=== PATIENT | female | born 1955 | race Caucasian/White ===

== ENCOUNTER → 2016-06-14 | Day surgery (SDC) | payer OTHER ==
[~2016-06-14] VITALS: Ht 170.2 cm; Wt 99.0 kg
[~2016-06-14] MED LIST: ACETAMINOPHEN 325 MG TAB PO PRN; ALBUAER2 INH; ASPCH81X PO; ASPI-390 PO; ATROPINE SULFATE 0.1 MG/ML 5ML SYR IV PRN; BENZ1CAP90 PO; BRVIN; BUDE0.5S INH; BUPR100T5 PO; BUPR150T5 PO; CALC-20 PO; CDN15 PO; CLON1TAB3 PO; CYM/30 PO; DULO60CA44 PO; FENTANYL CITRATE INJ 50 MCG/1 ML 2 ML VIAL ONE; FLUC100T4 PO; FURO-85 PO; GFNSR600 PO; HEPARIN SOD (PORCINE) 1000 UNIT/ML 10 ML VIAL ONE; HYDR1SUS2 PO; HYDR50TA3 PO; LEVAAER2 INH; LEVO1TAB35 PO; MIDAZOLAM HCL 1 MG/ML 2ML VIAL ONE; MORP20SO PO; MULT-729 PO; NAPR1CAP12 PO; NITROGLYCERIN/D5W 100MCG/ML 20ML SYR ONE; NYSS5 PO; NiCARDipine HCL INJ 2.5 MG/ML 10 ML AMP ONE; PANT40TA PO; PRED10TA PO; PRED20TA PO; RANI300T2 PO; ROSU5TAB PO; SNG10 PO; SODIUM CHLORIDE 0.9% 1000ML 1,000 ML IV SCH; SODIUM CHLORIDE 0.9% 1000ML 250 ML IV PRN; TAPE50TA PO; THEO1TAB PO; [UNRECOGNIZED DRUG - CODE] IV
[2016-06-14 08:55] VITALS: BP 136/57; PULSE 103; TEMP 36.7; O2SAT 97; Ht 170.2 cm; Wt 99.0 kg
--- NOTE | 2016-06-14 09:28 | History & Physical Bridge Note ---
H&P Re-Evaluation Bridge Note: I have examined the patient, reviewed the History & Physical and in the interval since the performance of the History & Physical I have noted the following changes of clinical significance: No changes noted
--- NOTE | 2016-06-14 09:31 | Procedure Note ---
Pre-Mod Sedation Assessment General Date of Moderate Sedation: Jun 14, 2016. Vital Signs: Vital Signs Past 12 Hours Date Time Temp Pulse Resp B/P Pulse Ox O2 Delivery O2 Flow Rate FiO2 06/14/16 08:55 36.7 103 16 136/57 97 Room Air Review Cardiovascular: regular rate, rhythm, no edema, no gallop, no murmur Abdomen: normal bowel sounds, non tender Lungs: + decreased breath sounds Airway Class: II Pre-Sedation Airway Assessment Oral Cavity: WNL Able to Visualize Vocal Cords: Yes Short Thick Neck: Yes Hx of Sleep Apnea: No Smoking Status: Never Smoker Mallampati Classification: Class II ASA Classification: Class II Procedure Planning Contraindications-for Mod Sed: None Notes The planned sedation has been discussed with the patient and consent obtained. I have identified the patient, determined the appropriateness of sedation and have assessed the patient immediately prior to the procedure. All medicine(s) and interventions are by my order.
--- NOTE | 2016-06-14 10:31 | [facility] Post Operative Brief Note ---
Preliminary Procedure Note Procedure Date Jun 14, 2016. Pre-Procedure Diagnosis Positive Stress Test AUC Score 8 Post-Procedure Diagnosis Normal Coronary Arteries Procedure(s) Performed Coronary Angiography, Left Heart Cath, LV Angiography Clod Puller Dr. Roberto Pat Clinical Appeals Specialist(s) Krissy Augustin Estimated Blood Loss <15cc Medication(s) Fentanyl (12.5 mcg IV), Heparin (5000u IV), Nicardipine (300mcg intraarterial after sheath insertion), Versed (1 mg IV), Lidocaine 1% (local infiltration) Preliminary Findings Right dominant coronary anatomy LM -- long normal LAD -- short Type II with thin apical segment but large paralleling diagonal with minimal luminal irregularities Ramus -- small without disease LCX -- large but nondominant with large OM two small PL branches. No disease RCA -- large dominant vessel with minimal luminal irregularities only LV -- Normal function EF 60-65%, no MR normal AO size LVEDP 12 Recommendations Medical therapy and/or Counseling Specimens None Fluids (cc crystalloids) 60 Anesthesia Versed 1mg IV, Fentranyl 12.5 mcg IV Disposition Print Graphic Designer Holding/Recovery
--- NOTE | 2016-06-14 11:02 | Cardiac Catheterization ---
Procedure Note Procedure Date Jun 14, 2016. Pre-Procedure Diagnosis Positive Stress Test AUC Score 8 Post-Procedure Diagnosis Mild CAD (minimal luminal irregularites only) Procedure(s) Performed Coronary Angiography, Left Heart Cath, LV Angiography Art Preparator Dr. Roberto Pat Stock Car Driver(s) Krissy Augustin Estimated Blood Loss Medication(s) Fentanyl (12.5 mcg IV), Heparin (5000u IV), Nicardipine (300 mcg intraarterial after sheath insertion), Versed (1mg IV), Lidocaine 1% (local infiltration) Summary of Findings Right dominant coronary anatomy LM -- long normal LAD -- short Type II with thin apical segment but large paralleling diagonal with minimal luminal irregularities Ramus -- small without disease LCX -- large but nondominant with large OM two small PL branches. No disease RCA -- large dominant vessel with minimal luminal irregularities only LV -- Normal function EF 60-65%, no MR normal AO size LVEDP 12 Hemodynamics Rest Ao: 132/73/100 Final Ao: 148/82/111 LV: 119/12/17 Recommendations Medical therapy and/or Counseling (132/73/100) Specimens None Radiation Exposure (mGy) 892 Contrast (mls) 112 Fluids (cc crystalloids) 60 Procedural Complication(s) None Disposition Accounting Clerks Supervisor Holding/Recovery [facility] Data Cardiac Status Clinical evaluation leading to the procedure CAD Presntation: Positive Stress Test Anginal Classification: CCS III (exertional dyspnea) Heart Failure: No Cardiogenic Shock w/in 24Hrs: No Imaging studies past 6 months: Yes Stress studies past 6 months: Yes Standard Exercise Stress Test: No Stress Echocardiogram: Yes - Positive Stress Testing w/SPECT MPI: No Cardiac CTA: No Coronary Anatomy Dominant: Right Left Main (% Stenosis): Normal (Long) LAD (% Stenosis): Normal D1 (% Stenosis): Normal (large bifurcating vessel reaching apex) D2 (% Stenosis): Normal Circumflex (% Stenosis): Normal OM1 (% Stenosis): Normal (Large) L PL1 (% Stenosis): Normal L PL2 (% Stenosis): Normal RCA (% Stenosis): Mid (minimal luminal irregularities) Ramus (% Stenosis): Normal (small) Left Ventricular Angiography EF (%): 60-65 Mitral Regurgitation: None Diagnostic Status: Elective Closure Device Percutaneous Entry Location: Radial Closure Device: Radial Band Recommendations: Medical therapy and/or Counseling
--- NOTE | 2016-06-14 11:06 | Discharge Instructions ---
Discharge Instructions Procedure Procedure Date: Jun 14, 2016. Reason for Visit: Abnormal Stress Test, Angina. Discharge Discharge Date: Jun 14, 2016. Discharge Diagnosis: Minimal coronary luminal irregularities without obstruction Last Recorded Wt (Kilograms): 99 Anesthesia Post Anesthesia Instructions: If you have had General Anesthesia or IV Sedation: * Do not drive today. * Resume driving when surgeon permits. * Do not make important decisions or sign legal documents today. * Call surgeon for: 1. Temperature elevations greater than 101 degrees F. 2. Uncontrollable pain. 3. Excessive bleeding. 4. Persistent nausea and vomiting. 5. Medication intolerance (nausea, vomiting or rash). * For nausea and vomiting use only clear liquids such as: tea, soda, bouillon until nausea subsides, then gradually increase diet as tolerated. * If you have any concerns or questions, call your surgeon's office. If physician is unavailable and it is an emergency, call 911 or go to the nearest emergency room. Instructions Activity Recommendations: limitations as noted below Recommended Home Diet: resume previous diet Allergies: Coded Allergies: Homatropine (Verified Allergy, Intermediate, HIVES, 06/15/15) Hydrocodone (Verified Allergy, Intermediate, HIVES, 06/15/15) Citalopram (Verified Adverse Reaction, Intermediate, WALKING INTO GUILLORY AND DOORWAYS, TRIPPING, FALLING, 06/15/15) Telithromycin (Verified Adverse Reaction, Unknown, GI PROBLEMS, 06/15/15) Provider Instructions ACTIVITY RECOMMENDATIONS: Excess manipulation of the wrist should be avoided for the next 24-48 hours. * No lifting over 2 pounds (approximately a 1/2 gallon of milk) with the utilized arm for 24 hours. * No strenuous activity such as bowling or tennis for 3 days. * Keep the site of the procedure covered with a bandage for 24 hours. *You may shower the day after the procedure. Do not take a tub bath or submerge the puncture site in water for the next 3 days. *Do not operate any motorized equipment for 3 days. SPECIAL CARE INSTRUCTIONS: The site may be slightly bruised and sore following your procedure. Should any of the following occur, contact the Dr. who performed your procedure. 1. Redness/inflammation, swelling, chills, or fever, or colored drainage at procedure site within 3-7 days after your procedure. 2. Coldness, discoloration, ongoing numbness, severe pain, or swelling. Expect mild tingling of hand and tenderness at the puncture site for up to three days. If this persists beyond three days, or other symptoms develop, notify the Dr. who performed your procedure. BLEEDING: If the procedure site on your wrist begins to bleed, do not panic 1. Place 1 or 2 fingers firmly just slightly above the insertion site to stop the bleeding. You may be able to feel your pulse as you hold pressure. 2. Lift your finger after 5 minutes to see if the bleeding has stopped. 3. Once the bleeding has stopped, gently wipe the wrist area clean with a bandage. * If the bleeding from your wrist does not stop after 10 minutes, or if there is a large amount of bleeding or spurting, call 911 (do not drive yourself to the hospital). SKIN IRRITATION: * You may experience some redness and/or swelling in the area where radiation was administered. If any skin irritation occurs, please contact your family physician. FOLLOW UP VISIT: Keep any scheduled doctor appointments. Follow Up Follow-up with: Dr Rizzo as scheduled Emmie Murcia Recommendations: Call your doctor if: * Temperature above 101 degrees * Pain not relieved by pain medicine ordered * There is increased drainage or redness from any incision * You have any unanswered questions or concerns. Your Doctors Instructions noted above were prepared by provider Roberto Pat. Patient Signature Section: Patient Instructions Signature Page Adleaide Vela Patient (or Guardian) Signature/Date: I have read and understand the instructions given to me by my caregivers. Caregiver/RN/Doctor Signature/Date: The above-named patient and/or guardian has received patient instructions on this date. + Original Patient Signature Page (only) stays with chart. Please make copy for patient.
[2016-06-14 12:30] VITALS: BP 138/63; PULSE 103; O2SAT 97
== END | disposition home or self-care (01) ==
LOC: C.CATH 08:26
PROVIDERS: ATTEND Internal Medicine Cardiovascular Disease
DX: R94.39 Abnormal result of other cardiovascular function study (principal); J45.909 Unspecified asthma, uncomplicated; M19.90 Unspecified osteoarthritis, unspecified site; E78.5 Hyperlipidemia, unspecified; J21.9 Acute bronchiolitis, unspecified; Z98.890 Other specified postprocedural states; Z90.710 Acquired absence of both cervix and uterus; Z88.8 Allergy status to other drugs, medicaments and biological substances

== ENCOUNTER → 2017-07-01 | Outpatient (CLI) | payer OTHER ==
[~2017-07-01] MED LIST changes: -ACETAMINOPHEN 325 MG TAB PO PRN; -ATROPINE SULFATE 0.1 MG/ML 5ML SYR IV PRN; -BUPR100T5 PO; -FENTANYL CITRATE INJ 50 MCG/1 ML 2 ML VIAL ONE; -HEPARIN SOD (PORCINE) 1000 UNIT/ML 10 ML VIAL ONE; -HYDR50TA3 PO; -MIDAZOLAM HCL 1 MG/ML 2ML VIAL ONE; -NITROGLYCERIN/D5W 100MCG/ML 20ML SYR ONE; -NiCARDipine HCL INJ 2.5 MG/ML 10 ML AMP ONE; -PRED20TA PO; -SODIUM CHLORIDE 0.9% 1000ML 1,000 ML IV SCH; -SODIUM CHLORIDE 0.9% 1000ML 250 ML IV PRN
--- NOTE | 2017-07-01 12:46 | DIAGNOSTIC IMAGING REPORT ---
CHEST 2 VIEWS ROUTINE CLINICAL HISTORY: R06.02 dyspnea COMPARISON STUDY: 12/07/2014 FINDINGS: Mild stable cardiomegaly. Mild emphysematous change. No focal infiltrate. Slight wedge deformity of L1 unchanged from the prior exam. IMPRESSION: Mild emphysematous change. No acute process. The above report was generated using voice recognition software. It may contain grammatical, syntax or spelling errors. Electronically signed by: Les Izquierdo M.D. 07/01/2017 12:44 PM Dictated Date/Time: 07/01/2017 12:43 PM
[2017-07-01 13:04] LABS: BASO % 0.6 %; BASO ABS # 0.04 K/uL (0-0.2); EOS % 2.7 %; EOS ABS # 0.18 K/uL (0-0.5); HEMATOCRIT 41.6 % (37-47); HEMOGLOBIN 13.9 g/dL (12.0-16.0); IG# 0.01 K/uL (0.00-0.02); LYMPH % 29.8 %; LYMPH ABS # 1.98 K/uL (1.2-3.4); MEAN CELL VOLUME 82.9 fL (80-100); MEAN CORPUSCULAR HEMOGLOBIN 27.7 pg (25-34); MEAN CORPUSCULAR HGB CONC 33.4 g/dl (32-36); MEAN PLATELET VOLUME 9.5 fL (7.4-10.4); MONO % 6.3 %; MONO ABS # 0.42 K/uL (0.11-0.59); NEUT % 60.4 %; NEUT ABS # 4.02 K/uL (1.4-6.5); PLATELET COUNT 254 K/uL (130-400); RED CELL DISTRIBUTION WIDTH CV 14.3 % (11.5-14.5); RED CELL DISTRIBUTION WIDTH SD 43.2 fL (36.4-46.3); WHITE BLOOD COUNT 6.65 K/uL (4.8-10.8)
[2017-07-01 14:57] LABS: ALT/SGPT 26 U/L (12-78); AST/SGOT 11 U/L (15-37); BLOOD UREA NITROGEN 20 mg/dl (7-18); CALCIUM 9.5 mg/dl (8.5-10.1); CARBON DIOXIDE 28 mmol/L (21-32); GLUCOSE 97 mg/dl (70-99); POTASSIUM 4.1 mmol/L (3.5-5.1); SODIUM 139 mmol/L (136-145)
[2017-07-01 14:59] LABS: ALKALINE PHOSPHATASE 92 U/L (45-117); TOTAL PROTEIN 7.5 gm/dl (6.4-8.2)
== END | disposition home or self-care (01) ==
LOC: C.RAD1850 11:48
PROVIDERS: ATTEND Physician Assistant
DX: R06.02 Shortness of breath (principal); R53.83 Other fatigue